=== PATIENT | male | born 1960 | race Native Hawaiian/Other Pacific Islander ===

== ENCOUNTER 2022-05-11 10:06 | Outpatient (CLI) | payer OTHER | END 2022-05-11 19:11 | disposition home or self-care (01) | LOC: RESP 10:06 → EDBD 10:06 → EDSTATUS 10:30 → RESP 10:30 | PROVIDERS: ATTEND Surgery | DX: R91.8 Other nonspecific abnormal finding of lung field (principal); J43.9 Emphysema, unspecified; R91.1 Solitary pulmonary nodule ==